=== PATIENT | female | born 1990 | race Caucasian/White ===

== ENCOUNTER 2019-08-12 09:57 | Emergency (ER) | payer OTHER ==
[~2019-08-12] VITALS: Ht 160 cm; Wt 87.3 kg
[2019-08-12 10:05] VITALS: BP_SYST 103
--- NOTE | 2019-08-12 10:15 | NUR ---
BIB SELF C/O LT EAR FOREIGN BODY, L EAR X 30MINS WHILE CLEANING HER EAR W/ CUTIPS. DENIES PAIN OR DRAINAGE. DENIES PMH NO MEDS
[2019-08-12 11:05] VITALS: BP_DIAS 79
[2019-08-12 11:09] VITALS: BP_SYST 103
--- NOTE | 2019-08-12 11:09 | NUR ---
Patient discharged with v/s stable. Written and verbal after care instructions given and explained. Patient verbalized understanding. Ambulatory with steady gait. All questions addressed prior to discharge. Advised to follow up with PMD.
== END 2019-08-12 11:09 | disposition home or self-care (01) ==
LOC: MED 09:57
DX: T16.2XXA Foreign body in left ear, initial encounter (principal); X58.XXXA Exposure to other specified factors, initial encounter; Y93.89 Activity, other specified; Y92.89 Other specified places as the place of occurrence of the external cause; Y99.8 Other external cause status
CPT/HCPCS: 99284